=== PATIENT | female | born 1960 | race Caucasian/White ===

== ENCOUNTER 2017-06-28 16:45 | Emergency (ER) | payer BC, OTHER ==
[2017-06-28 18:00] VITALS: BP 133/84
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
--- NOTE | 2017-06-28 19:54 | RAD ---
INDICATION: Bilateral ankle injury. TECHNIQUE: 3 views of both ankles were obtained. FINDINGS: The bones are in normal alignment. No fracture is seen. Joint spaces appear maintained. IMPRESSION: NO EVIDENCE FOR FRACTURE.
--- NOTE | 2017-06-28 19:55 | RAD ---
INDICATION: Left lower leg injury. TECHNIQUE: 2 views of the left lower leg were obtained. FINDINGS: The bones are normal alignment. No fracture is seen. IMPRESSION: NO EVIDENCE OF FRACTURE.
--- NOTE | 2017-06-28 19:55 | RAD ---
INDICATION: Right lower leg injury. TECHNIQUE: 2 views of the right lower leg were obtained. FINDINGS: The bones are normal alignment. No fracture is seen. IMPRESSION: NO EVIDENCE OF FRACTURE.
== END 2017-06-28 20:25 ==
LOC: UCEAST 16:45
DX: M25.572 Pain in left ankle and joints of left foot (principal); M25.571 Pain in right ankle and joints of right foot; M79.662 Pain in left lower leg; M79.661 Pain in right lower leg; R10.11 Right upper quadrant pain; Z90.49 Acquired absence of other specified parts of digestive tract
CPT/HCPCS: 99201; G0463

== ENCOUNTER 2023-06-13 05:33 | Observation (INO) ==
[~2023-06-13 05:33] MED LIST: HYDROmorphone 1 MG/1 ML SYRINGE IV PRN; Naloxone 0.4 mg VIAL 0.4 mg/ml 1 ml VIAL IV PRN; Ondansetron 4 mg VIAL 2 MG/ML 2 ml VIAL IV PRN
[2023-06-13] MEDS ORDERED: Tranexamic Acid 1 GM/100ML BAG 2,000 MG/200 ML BAG IV ONE (06:19)
[2023-06-13] MEDS ORDERED: ceFAZolin 2 GM in NS PREMIX 2 GM/100 ML BAG IVPB ONE (06:20)
[2023-06-13 06:45] LABS: Rapid COVID-19 Molecular Undetected (Undetected)
[2023-06-13] MEDS ORDERED: Midazolam 2 mg/2 ml VIAL 1 mg/ml 2 ml VIAL (2 mg) ONE (07:06)
[2023-06-13] MEDS ORDERED: Propofol 0 MG/0 ML BTL ONE (07:06)
[2023-06-13] MEDS ORDERED: ROPIVACAINE 5 MG/ML 30 ML BTL (0.5%) ONE (07:20)
[2023-06-13] MEDS ORDERED: Lidocaine 2% PF 5 ML VIAL ONE (07:24)
[2023-06-13] MEDS ORDERED: Propofol 10 MG/ML 20 ML BTL ONE (07:24)
[2023-06-13] MEDS ORDERED: fentaNYL 250 mcg/5 ml 50 MCG/ML 5 ml VIAL (250 MCG) ONE (07:25)
[2023-06-13] MEDS ORDERED: Rocuronium 50 mg VIAL 10 mg/ml 5 ml VIAL (50 mg) ONE (07:25)
[2023-06-13] MEDS ORDERED: Dexamethasone IV 4 MG/ML VIAL 1 ml VIAL ONE (07:57)
[2023-06-13] MEDS ORDERED: Ondansetron 4 mg VIAL 2 MG/ML 2 ml VIAL ONE (07:57)
[2023-06-13] MEDS ORDERED: Ondansetron 4 mg VIAL 2 MG/ML 2 ml VIAL IV PRN (08:05)
[2023-06-13] MEDS ORDERED: Lactulose 30 ml UDC PO PRN (08:05)
[2023-06-13] MEDS ORDERED: Magnesium Hydroxide LIQ 30 ML UDC PO PRN (08:05)
[2023-06-13] MEDS ORDERED: Morphine 2 MG/ML SYRINGE IV PRN (08:05)
[2023-06-13] MEDS ORDERED: Ondansetron ODT 4 mg TAB 4 MG TAB PO PRN (08:05)
[2023-06-13] MEDS ORDERED: fentaNYL 100 mcg/2 ml 50 MCG/ML VIAL ONE ×2 (08:46→10:38)
[2023-06-13] MEDS ORDERED: Buffered Lidocaine 1% SYRIN 1 ml INTRADERM ONE (09:51)
[2023-06-13] MEDS ORDERED: Lactated Ringers 1000 ml BAG 1,000 ML IV SCH (10:00)
[2023-06-13] MEDS: fentaNYL 100 mcg/2 ml 50 MCG/ML VIAL IV PRN ×2 (10:38→10:55)
[2023-06-13] MEDS: Lactated Ringers 1000 ml BAG 1,000 ML IV SCH ×2 (11:39→22:25)
[2023-06-13] MEDS: Vitamin THERAPEUTIC TAB PO SCH (12:15)
[2023-06-13] MEDS: Magnesium Hydroxide LIQ 30 ML UDC PO SCH ×2 (12:15→22:20)
[2023-06-13] MEDS: ceFAZolin 1 GM ADVAN 1 GM in NS 0.9% 50 ML 50 ML IVPB SCH ×2 (16:45→23:34)
[2023-06-13] MEDS ORDERED: Simvastatin 10 mg TAB (NF) PO SCH (21:00)
[2023-06-14 06:31] LABS: Platelet Count 162 10^3/uL (150-450)
[2023-06-14 06:51] LABS: Calcium 8.5 mg/dL (8.6-10.3); Creatinine, Serum 0.75 mg/dL (0.51-0.95); Potassium 4.6 mmol/L (3.5-5.0); eGFR CKD-EPI 89.4 (>60)
[2023-06-14 06:55] LABS: Hematocrit 36.3 % (35-45); Hemoglobin 12.3 g/dL (11.5-14.3)
[2023-06-14] MEDS: ceFAZolin 1 GM ADVAN 1 GM in NS 0.9% 50 ML 50 ML IVPB SCH (08:11)
[2023-06-14] MEDS: Magnesium Hydroxide LIQ 30 ML UDC PO SCH (08:12)
[2023-06-14] MEDS: Vitamin THERAPEUTIC TAB PO SCH (08:12)
[2023-06-14 10:20] VITALS: BP 122/70
== END 2023-06-14 12:50 | disposition home or self-care (01) ==
LOC: OR 05:33 → SSU 05:33
PROVIDERS: ADMIT Orthopaedic Surgery Adult Reconstructive Orthopaedic Surgery; ATTEND Orthopaedic Surgery Adult Reconstructive Orthopaedic Surgery